=== PATIENT | male | born 1995 | race Caucasian/White ===

== ENCOUNTER 2017-02-10 14:00 | Emergency (ER) | payer BC ==
[2017-02-10] MEDS ORDERED: cefTRIAXone 250 MG in Lidocaine 1% 1 ML IM ONE (14:34)
[2017-02-10] MEDS ORDERED: Azithromycin 250 MG Tab PO STA (14:34)
--- NOTE | 2017-02-10 14:34 | EDM.PDOC ---
ED HPI GENERAL MEDICAL PROBLEM - General Chief Complaint: Genitourinary Problem Stated Complaint: STI CHECK Time Seen by Provider: 02/10/17 14:01 Source of Information: Reports: Patient History Limitations: Reports: No Limitations - History of Present Illness INITIAL COMMENTS - FREE TEXT/NARRATIVE: HISTORY AND PHYSICAL: History of present illness: Patient is a 21-year-old male who presents to the emergency room today with request for an STD check. He states that he was informed that a past sexual partner tested positive for chlamydia. He denies any dysuria, penile drainage, erythema, swelling or any open sores or lesions. No systemic complaints. Denies any fever, chills, abdominal pain, nor change in his urinary or bowel patterns. Review of systems: As per history of present illness and below otherwise all systems reviewed and negative. Past medical history: As per history of present illness and as reviewed below otherwise noncontributory. Surgical history: As per history of present illness and as reviewed below otherwise noncontributory. Social history: No reported history of drug or alcohol abuse. Family history: As per history of present illness and as reviewed below otherwise noncontributory. Physical exam: General: Well-developed and well-nourished 21-year-old male. Alert and oriented. Appears in no acute distress. HEENT: Atraumatic, normocephalic, pupils reactive, negative for conjunctival pallor or scleral icterus, mucous membranes moist, throat clear, neck supple, nontender, trachea midline. Lungs: Clear to auscultation, breath sounds equal bilaterally, chest nontender. Heart: S1S2, regular, negative for clicks, rubs, or JVD. Abdomen: Soft, nondistended, nontender. Negative for masses or hepatosplenomegaly. Negative for costovertebral tenderness. Pelvis: Stable nontender. Genitourinary: Deferred. Rectal: Deferred. Extremities: Atraumatic, negative for cords or calf pain. Neurovascular unremarkable. Neuro: Awake, alert, oriented. Cranial nerves II through XII unremarkable. Cerebellum unremarkable. Motor and sensory unremarkable throughout. Exam nonfocal. Diagnostics: Gonorrhea and Chlamydia Therapeutics: Rocephin and azithromycin Impression: STD exposure Plan: 1. Please practice safe sex. 2. You have been screened for gonorrhea and chlamydia. Make sure you follow-up with your primary care provider for further STD testing that is not available through our emergency department. These results would be given to you in 3-5 for business days if anything returns positive. 3. Please follow up with her primary caregiver. Return to the ED as needed and as discussed. Definitive disposition and diagnosis as appropriate pending reevaluation and review of above. - Related Data Allergies Allergy/AdvReac Type Severity Reaction Status Date / Time No Known Allergies Allergy Verified 02/10/17 14:06 Home Meds: Home Meds . [No Known Home Meds] 02/10/17 [History] Past Medical History - Past Health History Medical/Surgical History: Denies Medical/Surgical History - Infectious Disease History Infectious Disease History: Reports: Chicken Pox Social & Family History - Family History Family Medical History: Noncontributory - Tobacco Use Smoking Status *Q: Never Smoker - Caffeine Use Caffeine Use: Reports: Coffee, Energy Drinks, Soda - Recreational Drug Use Recreational Drug Use: No ED ROS GENERAL - Review of Systems Review Of Systems: ROS reveals no pertinent complaints other than HPI. ED EXAM, GI/ABD - Physical Exam Exam: See Below (See dictation) Course - Vital Signs Last Recorded V/S: Last Vital Signs Temp 98.0 F 02/10/17 14:07 Pulse 67 02/10/17 14:07 Resp 18 02/10/17 14:07 BP 136/97 H 02/10/17 14:07 Pulse Ox 98 02/10/17 14:07 - Orders/Labs/Meds Orders: Active Orders 24 hr Category Date Time Status CHLAMYDIA AND GONORRHEA BY [facility] Stat Lab 02/10/17 14:13 Received Meds: Medications Discontinued Medications Generic Name Dose Route Start Last Admin Trade Name Roxanne PRN Reason Stop Dose Admin Azithromycin 1,000 mg 02/10/17 14:34 Zithromax PO 02/10/17 14:35 NOW STA Ceftriaxone Sodium 250 mg/ 1 mls @ 1 mls/sec 02/10/17 14:34 Lidocaine HCl IM 02/10/17 14:35 ONETIME ONE Departure - Departure Time of Disposition: 14:33 Disposition: Home, Self-Care 01 Clinical Impression: STD exposure - Discharge Information Referrals: PCP,None [Primary Care Provider] - Forms: ED Department Discharge Additional Instructions: My general discharge The following information is given to patients seen in the emergency department who are being discharged to home. This information is to outline your options for follow-up care. We provide all patients seen in our emergency department with a follow-up referral. The need for follow-up, as well as the timing and circumstances, are variable depending upon the specifics of your emergency department visit. If you don't have a primary care physician on staff, we will provide you with a referral. We always advise you to contact your personal physician following an emergency department visit to inform them of the circumstance of the visit and for follow-up with them and/or the need for any referrals to a consulting specialist. The emergency department will also refer you to a specialist when appropriate. This referral assures that you have the opportunity for follow-up care with a specialist. All of these measure are taken in an effort to provide you with optimal care, which includes your follow-up. Under all circumstances we always encourage you to contact your private physician who remains a resource for coordinating your care. When calling for follow-up care, please make the office aware that this follow-up is from your recent emergency room visit. If for any reason you are refused follow-up, please contact the [facility] Emergency Department at and asked to speak to the emergency department charge nurse. [facility] [address] [place] [address] 1. Please practice safe sex. 2. You have been screened for gonorrhea and chlamydia. Make sure you follow-up with your primary care provider for further STD testing that is not available through our emergency department. These results would be given to you in 3-5 for business days if anything returns positive. 3. Please follow up with her primary caregiver. Return to the ED as needed and as discussed. - My Orders Last 24 Hours: My Active Orders 02/10/17 14:13 CHLAMYDIA AND GONORRHEA BY [facility] Stat - Assessment/Plan Last 24 Hours: My Active Orders 02/10/17 14:13 CHLAMYDIA AND GONORRHEA BY [facility] Stat
== END 2017-02-10 15:08 | disposition home or self-care (01) ==
LOC: MW.ED 14:00
DX: Z20.2 Contact with and (suspected) exposure to infections with a predominantly sexual mode of transmission (principal)
CPT/HCPCS: 87491; 87591; 96372; 99283; A9270; J0696